=== PATIENT | female | born 1955 | race Caucasian/White ===

== ENCOUNTER → 2024-09-10 09:42 | Outpatient (BNVA) | payer MEDICARE, SELFPAY | PROVIDERS: PCP Internal Medicine; Referring Provider Internal Medicine; Visit Provider Nurse Practitioner Family | DX: J44.9 Chronic obstructive pulmonary disease, unspecified (principal); R05.3 Chronic cough; K21.9 Gastro-esophageal reflux disease without esophagitis; R06.09 Other forms of dyspnea; Z91.09 Other allergy status, other than to drugs and biological substances; Z87.891 Personal history of nicotine dependence | CPT/HCPCS: 99202 ==

== ENCOUNTER 2024-09-10 09:44 | Outpatient (AMB) | payer MEDICARE, SELFPAY ==
--- NOTE | 2024-09-10 09:40 | MHC.OFFVIS ---
Vital Signs 09/10/24 09:43 Height 4 ft 11 in Weight 186 lb 4 oz BMI 37.6 BP 120/68 Blood Pressure Location Rt brachial Position Sitting Pulse 68 Pulse Source Pulse Oximeter Pulse Oximetry (%) 96 Oxygen Delivery Method Room Air Intake Visit Reasons: COPD Allergies No Known Allergies Allergy (Verified 09/10/24 09:50) HPI HPI COPD: Details: Donna is a pleasant 68 year old female, former smoker, quit 15+ years ago with 15pyh with underlying GERD, osteopenia, HTN and hypothyroidism. She was referred by PCP for pulmonary evaluation for chronic cough. She reports productive cough with clear sputum and dyspnea on exertion with stairs for over three months. Since started CXR performed which did not reveal any acute abnormalities. She denies fever, chills or sick contacts. She denies prior h/o asthma. She has not had a PFT in the past. She reports recently starting Nexium which has resulted in significant decrease in cough and resolution of heartburn however continues with intermittent dyspnea and wheezing. She reports seasonal allergies and a dog at home. Endorses post nasal drip. Denies recent allergy testing. 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 She reports father, smoker, with COPD. [facility] Social History (Updated 09/10/24 @ 09:50 by Simin Rowley [facility]) Patient Tobacco Use Status: Former Tobacco user Review of Systems Const Denies chills, Denies excessive sweating, Denies fever(s), Denies headache(s) and Denies night sweats Eyes Denies dry eyes, Denies irritation and Denies itchy eyes ENT Reports Normal hearing present, Denies headache(s), Denies nasal congestion, Denies nasal discharge, Reports post nasal drip and Denies sore throat Card Denies chest pain, Denies chest pain at rest, Denies chest pain with activity, Denies claudication, Denies leg edema, Denies orthopnea and Denies paroxysmal nocturnal dyspnea Resp Denies chest congestion, Denies excessive phlegm production, Denies pain on inspiration, Denies pain with cough and Denies stridor Musc Denies myalgias Neuro Reports Normal hearing present and Denies headache(s) Endo Denies excessive sweating Niall/Lymph Denies lymphadenopathy Aller/Immun Denies itchy eyes and Denies seasonal rhinorrhea Physical Exam Vital Signs: Last Vital Signs Pulse 68 09/10/24 09:43 BP 120/68 09/10/24 09:43 Pulse Ox 96 09/10/24 09:43 Oxygen Delivery Method Room Air 09/10/24 09:43 BMI result Body Mass Index 37.6 Const General: cooperative, healthy appearing, comfortable, no acute distress, well developed and alert Orientation/consciousness: patient oriented x3 Limitations: no limitations HEENT Head: Yes normal to inspection, Yes normocephalic and Yes atraumatic Ears: hearing grossly normal bilaterally and external ears normal Eyes General: appearance normal, both eyes and all related structures Eyelids: Yes eyelids normal Sclerae: sclerae normal EOM: EOMs intact bilaterally Neck Neck: Yes normal visual inspection and Yes no lymphadenopathy Lymphatic: no lymphadenopathy noted Chest Chest palpation & inspection: normal inspection of the chest Resp Effort & Inspection: normal respiratory effort, able to speak in complete sentences, no audible wheezes, no cough, no stridor, not tachypneic, no tripod positioning and no use of accessory muscles Auscultation: clear to auscultation bilaterally Cardio Jugular venous distension: no JVD Rate: regular rate Rhythm: regular rhythm Skin Other: warm, dry General skin exam: no rashes or lesions noted Neuro General: patient oriented x3 Cranial nerves: Yes Normal hearing present Cognition (Neuro): normal cognition Gait exam (Neuro): Normal gait present Extrem General: Yes normal to inspection, Yes capillary refill normal, Yes no clubbing, cyanosis or edema and Yes no pedal edema Psych Appearance: grossly normal and well kempt Speech and movement: Normal speech and movement present and Clear speech present Affect: normal affect Attitude: cooperative Thought process: Normal thought process present Thought content: Normal thought content present Insight: Good insight present (Psych) Judgement: Good judgement present (Psych) Assessment & Plan Assessment & Plan (1) Chronic cough: Code(s): R05.3 - Chronic cough Category: Medical (2) Environmental allergies: Code(s): Z91.09 - Other allergy status, other than to drugs and biological substances Category: Medical (3) GERD (gastroesophageal reflux disease): Code(s): K21.9 - Gastro-esophageal reflux disease without esophagitis Category: Medical (4) Dyspnea on exertion: Code(s): R06.09 - Other forms of dyspnea Category: Medical Plan Donna presents for pulmonary evaluation for chronic cough and dyspnea. Her symptoms are likely multifactorial with pulmonary, allergic and reflux etiologies. Will send for PFT and RAST. Encouraged patient to restart symbicort prescribed by PCP to see if symptomatic improvement in dyspnea as she was only using PRN previously. All questions were answered and patient is in agreement of plan. Will follow up to review results or sooner if needed. Orders: Orders Immunoglobulin E Today Z91.09 - Other allergy status, other than to drugs and biological substances Complete Blood Count Auto Diff Today Z91.09 - Other allergy status, other than to drugs and biological substances Resp Allergy Profile Region I Today Z91.09 - Other allergy status, other than to drugs and biological substances PFT pulmonary function test Today R05.3 - Chronic cough, R06.09 - Other forms of dyspnea Coding Level of Care Code New Pt Level 4 (10824) Diagnoses Chronic cough R05.3 Environmental allergies Z91.09 GERD (gastroesophageal reflux disease) K21.9 Dyspnea on exertion R06.09
[2024-09-10 09:43] VITALS: BP 120/68; PULSE 68; O2SAT 96; BMI 37.6
== END 2024-09-10 10:14 | disposition home or self-care (01) ==
PROVIDERS: PCP Internal Medicine; Referring Provider Internal Medicine; Visit Provider Nurse Practitioner Family
DX: R05.3 Chronic cough (principal); Z91.09 Other allergy status, other than to drugs and biological substances; K21.9 Gastro-esophageal reflux disease without esophagitis; R06.09 Other forms of dyspnea
CPT/HCPCS: 99204

== ENCOUNTER 2024-09-10 10:16 | Outpatient (REF) | payer MEDICARE, SELFPAY ==
[2024-09-10 12:03] LABS: Basophils Absolute Auto 0.1 X10*3/uL (0.0-0.2); Basophils Percent Auto 1.6 % (0-2); Eosinophils Absolute Auto 0.3 X10*3/uL (0.0-0.4); Eosinophils Percent Auto 6.1 % (0-4); Hematocrit 37.5 % (37.0-47.0); Hemoglobin 12.7 g/dl (12.0-16.0); Imm Gran Abs Auto 0.02 X10*3/uL (0.00-0.03); Imm Gran Pct Auto 0.4 % (0.0-0.4); Lymphocytes Absolute Auto 1.3 X10*3/uL (1.2-4.9); Lymphocytes Percent Auto 22.5 % (20-40); MANUAL DIFF FLAG SCAN; Mean Corpuscular HGB Conc 33.9 g/dl (31.0-35.0); Mean Corpuscular Hemoglobin 30.9 pg (27.0-33.0); Mean Corpuscular Volume 91.2 fL (80.0-98.0); Mean Platelet Volume 10.3 fL (9.4-12.3); Monocytes Absolute Auto 0.4 X10*3/uL (0.1-1.2); Monocytes Percent Auto 6.8 % (2-11); Neutrophils Absolute Auto 3.5 x10*3/uL (2.0-8.3); Neutrophils Percent Auto 62.6 % (45-73); Platelet Count 324 X10*3/uL (160-400); Red Blood Count 4.11 X10*6/uL (4.20-5.50); Red Cell Distribution Width 12.2 % (11.0-16.0); SCAN SMEAR FLAG 1; White Blood Count 5.6 X10*3/uL (4.8-10.8)
[2024-09-10 12:19] LABS: SLIDE REVIEW VERIFIED
[2024-09-12 05:52] LABS: Class Alternaria alternata 0; Class Aspergillus fumigatus 0; Class Bermuda Grass 0; Class Birch 0; Class Cat Dander 0; Class Cladosporium herbarum 0; Class Cockroach 0; Class Common Ragweed 0; Class Cottonwood 0; Class Derm. pterony 0; Class Dermatophagoides farinae 0; Class Dog Dander 0; Class Elm 0; Class Maple Box Elder 0; Class Mountain Cedar 0; Class Mouse Urine Protein 0; Class Mugwort 0; Class Oak 0; Class Penicillium crysogenum 0; Class Rough Pigweed 0; Class Sheep Sorrel 0; Class Sycamore 0; Class Timothy Grass 0; Class Walnut Tree 0; Class White Ash 0; Class White Mulberry 0; D001 IgE D pteronyssinus <0.10 kU/L; D002 - IgE D farinae <0.10 kU/L; E001 - IgE Cat Dander <0.10 kU/L; E005 - IgE Dog Dander <0.10 kU/L; E072-IgE Mouse Urine <0.10 kU/L; G002 IgE Bermuda Grass <0.10 kU/L; G006 - IgE Timothy Grass <0.10 kU/L; I006-IgE Cockroach, German <0.10 kU/L; Immunoglobulin E 55 kU/L (<OR=114); M001 IgE Penicillium chrysogen <0.10 kU/L; M002 - IgE Cladosporium herbar <0.10 kU/L; M003 - IgE Aspergillus fumigat <0.10 kU/L; M006 - IgE Alternaria alternat <0.10 kU/L; T001 IgE Maple/Box Elder <0.10 kU/L; T003 IgE Common Silver Birch <0.10 kU/L; T006 - IgE Cedar, Mountain <0.10 kU/L; T007 - IgE Oak, White <0.10 kU/L; T008 IgE Elm, American <0.10 kU/L; T010 - IgE Walnut <0.10 kU/L; T011 - IgE Maple Leaf Sycamore <0.10 kU/L; T014 - IgE Cottonwood <0.10 kU/L; T015 - IgE Ash, White <0.10 kU/L; T070 - IgE White Mulberry <0.10 kU/L; W001 - IgE Ragweed, Short <0.10 kU/L; W006 - IgE Mugwort <0.10 kU/L; W014 IgE Pigweed, Common <0.10 kU/L; W018 IgE Sheep Sorrel <0.10 kU/L
== END 2024-09-10 10:17 | disposition home or self-care (01) ==
LOC: HO.WFDLDS 10:16
PROVIDERS: Visit Provider Nurse Practitioner Family
DX: Z91.09 Other allergy status, other than to drugs and biological substances (principal)
CPT/HCPCS: 36415; 82785; 85025; 86003

== ENCOUNTER → 2024-10-23 14:00 | Outpatient (BNV) | payer MEDICARE, SELFPAY | PROVIDERS: PCP Internal Medicine; Visit Provider Hospitalist | DX: R06.09 Other forms of dyspnea (principal); R05.3 Chronic cough | CPT/HCPCS: 94060; 94727; 94729 ==

== ENCOUNTER 2024-10-23 14:06 | Outpatient (REF) | payer MEDICARE, SELFPAY ==
[2024-10-23 10:57] VITALS: PULSE 82; O2SAT 97
--- NOTE | 2024-10-23 14:00 | PFT_ITS ---
Indication: Cough Spirometry [FEV1 to FVC 83%; FEV1 1.83 L; FVC 2.21 L. No significant response to bronchodilators noted. Maximum voluntary ventilation 106% predicted] Lung Volumes [Time capacity 80 % predicted; expiratory reserve volume 26% predicted] Diffusion Capacity [DLCO 116% predicted] Comparisons [none] Interpretation [No obstructive nor restrictive ventilatory defects identified. No significant response to bronchodilators noted. Normal maximum voluntary ventilation. Lung volumes are low normal in the flow volume loop is consistent with restrictive physiology. Need to consider occult interstitial lung conditions. The patient also has a decreased in the expiratory reserve volume likely secondary to an elevated BMI. Diffusing capacity is within normal limits.] MTDD
--- OUTSIDE RECORDS SUMMARY | 2024-10-24 02:43 | XMS_ITS | Data Portability ---
Author Organization [place] - [facility], Allergy Address [address] [address] Care Team Providers Care Architectural Project Manager Name Role Phone ALEX GORMAN Primary Care Provider Assessment No assessment recorded. Plan of Treatment Reminders Order Date Submit Date Provider Last Modified By Organization Details Last Modified Time Details Appointments None record ed. Lab None record ed. Referral None record ed. Procedures None record ed. Surgeries None record ed. Imaging None record ed. Medication Orders None record ed. Patient TargetsNo targets recorded. Patient InstructionsNo instructions recorded. Reason for Referral None Reported. Results Created Date Observation Date Name Description Value Unit Range Abnormal Flag Note LastModifiedBy Organization Detail LastModifiedTime 07/03/20 24 01/30/2024 imagi ng/di agnos tic resul t No observ ation record ed. [email or web address] Not Available 20:01:30 07/03/20 24 01/30/2024 imagi ng/di agnos tic resul t No observ ation record ed. [email or web address] Not Available 20:01:37 07/03/20 24 02/05/2024 imagi ng/di agnos tic resul t No observ ation record ed. [email or web address] Not Available 20:01:46 07/03/20 24 02/07/2024 imagi ng/di agnos tic resul t No observ ation record ed. [email or web address] Not Available 20:01:50 Result Notes None recorded. Problems Name Problem SNOMED Code Status Onset Date Resolution Date Notes Provider Name and Address Organization Details Recorded Time Dysphonia 58905643 Active 2017 Other voice and resonance disorders ; Note: Date Diagnosed : 01/19/2018 10:29 AM (R49.8) Not Available [facility] 4 03:20:24 Finding of resonance of voice [id number] Active 2017 Other voice and resonance disorders ; Note: Date Diagnosed : 01/19/2018 10:29 AM (R49.8) Not Available [facility] 4 03:20:24 Sensorine ural hearing loss of bilateral ears 406310216 Active 2023 CHANDAN ART, [facility] [address] [facility],[place] [address], [place], [address] , [facility] - [facility] 4 10:55:24 Impacted cerumen of bilateral ears [id number] 57454 Active 2023 Impacted cerumen, bilateral ; Note: Date Diagnosed : 01/30/2024 11:06 AM (H61.23) Not Available [facility] 4 03:20:25 Problem Notes None recorded. Procedures Surgical History None recorded. Imaging Results Imaging Date Name Status LastModified by [facility] Details LastModified Time 01/30/2024 imaging/diag nostic result completed Information not available 07/03/2024 20:01:30 01/30/2024 imaging/diag nostic result completed Information not available 07/03/2024 20:01:37 02/05/2024 imaging/diag nostic result completed Information not available 07/03/2024 20:01:46 02/07/2024 imaging/diag nostic result completed Information not available 07/03/2024 20:01:50 Procedure Notes None recorded. Medical Equipment None Reported. Medications Name Sig Start Date Stop Date Status Note LastModified by Organization Details LastModified Time multivita min tablet active Medicati on ID: [id number] B rand Name: multivit islas Sen d Method: E-Prescr ibed Sub s Allowed: subs OK Medic ationGen ericName : multivit islas Not Available Not Available Not Available atorvasta tin 40 mg tablet TAKE 1 TABLET BY MOUTH EVERY DAY IN THE EVENING active Not Available Not Available No t Available venlafaxi ne ER 37.5 mg capsule,e xtended release 24 hr TAKE 1 CAPSULE BY MOUTH EVERY DAY active Not Available Not Available No t Available aspirin 81 mg tablet,de layed release active Medicati on ID: [id number] B rand Name: aspirin Send Method: E-Prescr ibed Sub s Allowed: subs OK Medic ationGen ericName : aspirin Not Available Not Available Not Available Zantac 150 mg tablet Take 1 tablet by mouth twice a day active Medicati on ID: [id number] D uration Value: 7 Brand Name: Zantac S end Method: E-Prescr ibed Sub s Allowed: subs OK Medic ationGen ericName : Zantac M edicatio n ID: [id number] D uration Value: 7 Brand Name: Zantac S end Method: E-Prescr ibed Sub s Allowed: subs OK Medic ationGen ericName : Zantac Not Available Not Available Not Available valsartan 80 mg-hydroc hlorothia zide 12.5 mg tablet active Medicati on ID: [id number] B rand Name: valsarta n-hydroc hlorothi azide Se nd Method: E-Prescr ibed Sub s Allowed: subs OK Speci al Instruct ion: TAKE 1 TABLET BY MOUTH EVERY DAY Medi cationGe nericNam e: valsarta n-hydroc hlorothi azide Not Available Not Available Not Available levothyro xine 88 mcg tablet TAKE 1 TABLET BY MOUTH EVERY DAY active Not Available Not Available No t Available cephalexi n 500 mg capsule TAKE 1 CAPSULE BY MOUTH FOUR TIMES DAILY FOR 7 DAYS active Not Available Not Available No t Available pantopraz ole 40 mg tablet,de layed release active Medicati on ID: [id number] B rand Name: pantopra zole Sen d Method: E-Prescr ibed Sub s Allowed: subs OK Speci al Instruct ion: TAKE 1 TABLET BY MOUTH EVERY DAY.. Me dication GenericN manish: pantopra zole Not Available Not Available Not Available vitamin E 268 mg (400 unit) capsule 01/29 completed Medicati on ID: [id number] B rand Name: vitamin E Send Method: E-Prescr ibed Sub s Allowed: subs OK Medic ationGen ericName : vitamin E Not Available Not Available Not Available PreviDent 5000 Sensitive 1.1 %-5 % dental paste BRUSH WITH 2 TO 3 TIMES DAILY USUAL active Not Available Not Available No t Available vitamin E (dl, acetate) 180 mg (400 unit) capsule active Medicati on ID: [id number] B rand Name: vitamin E Send Method: E-Prescr ibed Sub s Allowed: subs OK Medic ationGen ericName : vitamin E Medica tion ID: [id number] B rand Name: vitamin E Send Method: E-Prescr ibed Sub s Allowed: subs OK Medic ationGen ericName : vitamin E Not Available Not Available Not Available turmeric 450 mg-turmer ic root extract 50 mg capsule 01/29 completed Medicati on ID: [id number] B rand Name: turmeric -turmeri c root extract Send Method: E-Prescr ibed Sub s Allowed: subs OK Medic ationGen ericName : turmeric -turmeri c root extract Not Available Not Available Not Available Fish Oil 1,000 mg (120 mg-180 mg) capsule active Medicati on ID: [id number] B rand Name: Fish Oil Send Method: E-Prescr ibed Sub s Allowed: subs OK Medic ationGen ericName : Fish Oil Not Available Not Available Not Available Vitals None Recorded Social History None recorded. Functional Status None recorded. Mental Status None recorded. Family History Nothing Reported. Medical History No medical history recorded. Gynecological HistoryNo gynecological history recorded. Obstetrics History GPAL:G 0 P 0 0 0 0 Past Encounters Encounter ID Performer Location Encounter Start Date Encounter Closed Date Diagnosis/Indication Diagnosis SNOMED-CT Code Diagnosis ICD10 Code [id number] [facility] [place] [facility] [place] [address] [address] 05/28/2024 09:07:28 06/03/2024 15:10:16 Sensorineural hearing loss of bilateral ears [id number] H90.3 Health Concerns Section Related Observation LastModified by Organization Detai ls LastModified Time None Recorded Concern Status LastModified by Organization Details LastModified Time None Recorded Advance Directives Directive None Recorded Payers Encounter Date Sequence Insurance Name Policy Number Policy Perea Covered Member ID Perea Member ID Guarantor Name 05/28/2024 1 [facility] (MEDICARE REPLACEMENT/A DVANTAGE - PPO) [id number] Donna Solis [id number] Donna Solis Notes Date Note Type Note Provider Name and Address Organization Details Recorded Time 05/28/2024 text/html Patient with rep orted gradual onset SNHL here to discuss fitting of amplification as a first time user. Patient has seen an mammography technologist who has provided medical clearance for the use of hearing devices.Reviewed history of hearing loss, the impact on hearing loss on communicative ability and the patient's goals for amplification. After discussing the pros and cons of various models and levels of technology, the patient was given the approximate cost for the mid level Related Content Database (RCDb) technology.Informed patient of her [facility] benefit and I encouraged her to look into this before making a a decision. She also spends the majority of her time in [place] so she may want to get her HAs there. Gave her my phone number in case she has any additional questions. CHANDAN ART, [facility] [address] [facility],[place] [address], [place], [address], [facility] - [facility] 05/28/2024 10:55:34 OBGyn Episode No OBEpisode recorded.
== END 2024-10-23 14:07 | disposition home or self-care (01) ==
LOC: HO.RESP 14:06
PROVIDERS: PCP Internal Medicine; Visit Provider Nurse Practitioner Family
DX: R06.09 Other forms of dyspnea (principal); R05.3 Chronic cough
CPT/HCPCS: 94010; 94640; 94727; 94729